=== PATIENT | female | born 1955 | race Caucasian/White ===

== ENCOUNTER 2023-05-24 11:03 | Emergency (ER) | payer MEDICARE, OTHER ==
[2023-05-24 11:34] VITALS: BP 151/90; O2SAT 100
--- NOTE | 2023-05-24 12:00 | ED Physician Documentation ---
History of Present Illness - Stated complaint Stated Complaint: SWOLLEN THROAT - Chief complaint Chief Complaint: General - History obtained from History obtained from: Patient - Additonal information Additional information: Patient is a 67-year-old female presenting for evaluation of feeling like her throat is closing every time she eats for the past 1 week. Patient states that she has a diagnosis of asthma and has recently been seeing an jump roll operator in [place] where she is from. She was started on a different steroid inhaler for her asthma as she had an intolerance to Advair. She feels like her throat gets tight every time she eats and lasts for several hours. She also reports feeling very dry in her throat. She also reports the new onset of a rash on her chest wall and feels flushed. 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 She denies being stung by anything. She has not noticed any association with particular foods in regards to her symptoms. Patient states that she is awaiting an ENT evaluation also in [place] but this appointment is not until July.Per the at the bedside he has not noticed any changes with her speech other than sometimes it sounds raspy but currently it sounds normal. Review of Systems Constitutional: denies: Fever Cardiac: denies: Chest pain / pressure Respiratory: denies: Dyspnea GI: denies: Abdominal Pain : denies: Dysuria Neurologic: denies: Headache PD PAST MEDICAL HISTORY - Present Medications Home Medications: Ambulatory Orders Medication Instructions Recorded Confirmed EPINEPHrine [Epinephrine] 0.3 mg IJ ONCE PRN #2 each 05/24/23 predniSONE [Deltasone] 40 mg PO DAILY 3 Days #6 tablet 05/24/23 - Allergies Allergies/Adverse Reactions: Allergies Allergy/AdvReac Type Severity Reaction Status Date / Time morphine Allergy Anaphylaxis Verified 05/24/23 11:19 Penicillins Allergy Anaphylaxis Verified 05/24/23 11:19 Sulfa (Sulfonamide Allergy Anaphylaxis Verified 05/24/23 11:19 Antibiotics) PD ED PE NORMAL - General General: Alert and oriented X 3, No acute distress, Well developed/nourished - HEENT HEENT: Atraumatic, Moist mucous membranes, Pharynx benign (No oral swelling, erythema or exudate) - Cardiac Cardiac: RRR, No murmur - Respiratory Respiratory: No respiratory distress, Clear bilaterally - Abdomen Abdomen: Soft, Non tender - Derm Derm: Warm and dry - Neuro Neuro: Normal speech Results - Vitals Vitals: Vital Signs - 24 hr 05/24/23 11:16 Temperature 37.1 C Heart Rate 100 Respiratory 20 Rate Blood Pressure 151/90 H O2 Saturation 100 PD Medical Decision Making - ED course ED course: Patient is a 67-year-old female presenting for evaluation of feeling like her throat is closing every time she eats for the past week. Patient did eat this morning. Her speech is normal. There is no signs of airway compromise or swelling. Her lung sounds are clear. Patient reports that her symptoms resolve on their own. She is being evaluated by ENT and jump roll operator in her home of [place]. She also reports rash to her chest and also feeling flushed recently. Her symptoms are somewhat vague and nonspecific and clinically she is well- appearing.This sounds atypical for symptoms such as angioedema or anaphylaxis. We discussed options at this time and patient is wanting to try a short course of prednisone to see if this helps her symptoms. She also did not bring an EpiPen with her on this trip and so I have prescribed a short course of prednisone and an EpiPen. She is counseled on need for close follow-up when she returns home as well as concerning symptoms to return for. Departure - Departure Disposition: 01 Home, Self Care Clinical Impression: Throat irritation, Rash and nonspecific skin eruption Condition: Stable Instructions: ED Erythema Prescriptions: predniSONE [Deltasone] 40 mg PO DAILY 3 Days #6 tablet EPINEPHrine [Epinephrine] 0.3 mg IJ ONCE PRN #2 each PRN Reason: Allergy Symptoms Comments: The exact cause for your symptoms at this time is unclear but could be related to your asthma and allergies. I am sending a prescription for a few days of prednisone as well as an EpiPen to [facility] in [place]. I would recommend close follow-up with your primary care provider. Please return to the emergency department if you develop worsening symptoms such as trouble breathing, inability to swallow or any new concerns. Forms: PCP List Discharge Date/Time: 05/24/23 12:14
== END 2023-05-24 12:14 | disposition home or self-care (01) ==
LOC: ED 11:03
DX: R07.0 Pain in throat (principal); R21 Rash and other nonspecific skin eruption
CPT/HCPCS: 99282; 99283

== ENCOUNTER 2023-09-30 08:00 | Outpatient (CLI) | payer MEDICARE, OTHER | END 2023-09-30 08:01 | disposition home or self-care (01) | LOC: LAB.N 08:00 | PROVIDERS: ATTEND Physician Assistant Medical | DX: J06.9 Acute upper respiratory infection, unspecified (principal) ==